=== PATIENT | male | born 1960 | race Caucasian/White ===

== ENCOUNTER 2024-03-27 12:50 | Emergency (ER) | payer OTHER ==
--- OUTSIDE RECORDS SUMMARY | 2024-03-27 12:53 | XMS REPORT | Clinical Summary ---
Author Name Unknown Organization [facility] Address [address] [place] [address] Care Team Providers Care Force Adjustment Supervisor Name Role Phone Josef Rome MD Primary Care Provider [phone] Adriano Ybarra MD Unavailable Chela Torres MD Unavailable [phone] Cl Billings DDS Unavailable [phone] Maida Oliva MD Unavailable [phone] Chris Brantley MD Unavailable [phone] Jeff Mcbride MD Unavailable Jeannine Mackey MD Unavailable [email or web address] [email or web address] No known active allergies Medications Medication Sig Dispensed Refills Start Date End Date Status docusate sodium (COLACE) 250 mg capsule Take 250 mg by mouth daily. Reported on 10/25/2016 Active albuterol (ACCUNEB) 1.25 mg/3 mL nebulizer solution Take 1 ampule by nebulization as needed for wheezing. Active metoclopramide (REGLAN) 10 mg tabletIndications:N eoplasm related pain (acute) (chronic),Other insomnia,Nausea alone Take 1 tablet (10 mg) by mouth every 4 (four) hours as needed for nausea. 120 tablet 12/15/2016 Active Additional Information Patient not taking.Reported on 04/07/2017 traZODone (DESYREL) 50 mg tabletIndications:O ther insomnia Take half of a tablet (25 mg) by mouth at bedtime. 30 tablet 04/07/2017 Active Additional Information Patient not taking.Reported on 04/07/2017 morphine (MSIR) 15 mg IR tabletIndications:N eoplasm related pain (acute) (chronic) Take 1 tablet (15 mg) by mouth every 4 hours as needed for moderate pain (maximum 4 doses per day). 90 tablet 05/04/2017 Active morphine (MS CONTIN) 60 mg 12 hr tabletIndications:N eoplasm related pain (acute) (chronic) Take 1 tablet (60 mg) by mouth every 12 (twelve) hours. 60 tablet 05/04/2017 Active losartan (COZAAR) 50 mg tabletIndications:H ypertension TAKE 2 TABLETS EVERY DAY 60 tablet 09/26/2017 Active losartan (COZAAR) 50 mg tabletIndications:H ypertension TAKE 2 TABLETS EVERY DAY 60 tablet 09/26/2017 Active losartan (COZAAR) 50 mg tabletIndications:B enign hypertension TAKE 2 TABLETS EVERY DAY 60 tablet 3 02/07/2018 Active Active Problems Patient Care Coordination No te Formatting of this note migh t be different from the original. The patient will get colonoscopy on 01/26 and follow up on 02/01. Problem Noted Date Diagnosed Date Sinus tachycardia 03/29/2017 Personal history of colonic polyps 02/02/2017 Overview: Added automatically from request for surgery [id number] Villous adenoma of colon 02/02/2017 Overview: Added automatically from request for surgery [id number] Tubular adenoma of colon 02/02/2017 Overview: Added automatically from request for surgery [id number] Colon cancer 01/02/2017 Overview: Added automatically from request for surgery [id number] Mandatory CMS ICD-10 2020 UPDATE Adenocarcinoma of upper lobe of left lung 2016 Malignant neoplasm related fatigue 08/01/2016 Anorexia 08/01/2016 Neuropathic pain 07/25/2016 Adjustment disorder with anxiety 07/25/2016 Hypertension 07/25/2016 Overview: Hypertension diagnosed in October 2015. Started metoprolol tartrate 25 mg po BID in October 2015. Last Assessment & Plan: Has been out of medications for one week. Change to metoprolol succinate 50 mg po daily. Chronic obstructive pulmonary disease 07/25/2016 Neoplasm related pain (acute) (chronic) 04/22/20 16 Nausea with vomiting 04/22/2016 Ileus 04/22/2016 Fever with chills 04/22/2016 Ileitis 04/22/2016 Primary malignant neoplasm of left lung 04/21/20 16 Last Assessment & Plan: Mr. Tran is a 55-year-old male patient here postoperatively after left upper lobectomy on July 22, 2016 pathological stage [id number] adenocarcinoma stage IIA. He is going to see Dr. Jordan for adjuvant chemotherapy. Follow-up will be in 3 months with imaging. Eye symptom 04/12/2016 Adenocarcinoma of sigmoid colon 04/04/2016 Immunizations Name Administration Dates Next Due Influenza, split virus, trivalent, preservative free 04/28/2016 Pneumococcal Conjugate 13-Valent 04/28/2016 Surgical History Surgery Date Site/Laterality Comments COLOSTOMY [facility] EBUS GUIDED SAMPL 3/> NODE STATION/STRUX 04/29/2016 N/A Procedure: BRONCHOSCOPY WITH EBUS 3 OR MORE NODES; Surgeon: Jenni Michele MD; Location: MAIN PULM PROC; Service: PULMONARY GA THORACOTOMY WITH EXPLORATION 07/22/2016 Chest/Left Procedure: THORACOTOMY WITH EXPLORATION; Surgeon: Maida Oliva MD; Location: MAIN OR; Service: THRCV - THORACIC SURGERY Medical devices from this surgery are in the Medical Devices section. GA THORCOM THRC W/MEDSTNL & REGIONAL LMPHADEC 07/22/2016 Chest/Left Procedure: THORACIC LYMPHADENECTOMY BY THORACOTOMY, MEDIASTINAL AND REGIONAL LYMPHADENECTOMY; Surgeon: Maida Oliva MD; Location: MAIN OR; Service: THRCV - THORACIC SURGERY Medical devices from this surgery are in the Medical Devices section. GA RMVL LUNG OTHER THAN PNEUMONECTOMY 1 LOBE LOBECT 07/22/2016 Chest/Left Procedure: LOBECTOMY OF LEFT UPPER LUNG; Surgeon: Maida Oliva MD; Location: MAIN OR; Service: THRCV - THORACIC SURGERY Medical devices from this surgery are in the Medical Devices section. GA INJECTION AA&/STRD INTERCOSTAL NRV EA ADDL LVL 07/22/2016 Left Procedure: REGIONAL ANESTHETIC BLOCK OF MULTIPLE INTERCOSTAL NERVES, REGIONAL BLOCK; Surgeon: Maida Oliva MD; Location: MAIN OR; Service: THRCV - THORACIC SURGERY Medical devices from this surgery are in the Medical Devices section. GA COLONOSCOPY STOMA DX INCLUDING COLLJ SPEC SPX 01/26/2017 N/A Procedure: DIAGNOSTIC COLONOSCOPY THROUGH STOMA; Surgeon: Rancho Sharma MD; Location: MAIN ENDOSCOPY; Service: GASTROENTEROLOGY; f/up 1 year Medical History Medical History Date Comments Cancer Colon cancer Hypertension Chronic obstructive pulmonary disease Asthma childhood Pneumonia 10/2015 Adenocarcinoma of upper lobe of left lung 10/26/19 17 Tubular adenoma of colon 01/26/2017 s/p susan ypectomy Villous adenoma of colon 01/26/2017 s/p susan ypectomy Family History Medical History Relation Name Comments Colon cancer Maternal Grandfather Colon cancer Maternal Grandmother Cervical cancer Mother Colon cancer Mother Kidney cancer Other niece Liver cancer Paternal Uncle Relation Name Status Comments Maternal Grandfather Maternal Grandmother Mother Other Paternal Uncle Social History Tobacco Use Types Packs/Day Years Used Date Smoking Tobacco: Former Cigarettes 1 45 0 06/13/1971 - 05/24/2016 Smokeless Tobacco: Never Tobacco Cessation:Ready to Q uit: Yes; Counseling Given: Yes Alcohol Use Standard Drinks/Week Comments No 28 (1 standard drink = 0.6 oz pu re alcohol) Quit 2 months ago Sex and Gender Information Value Date Recorded Sex Assigned at Not on file Gender Identity Not on file Sexual Orientation Not on file Obstetrics History Plan of Treatment Health Maintenance Due Date Last Done Comments COVID-19 Vaccine ( - 2023-2 5 season) 2024 Influenza Vaccine (#1) 2024 04/28/2016 Pneumococcal Vaccine: Pediat rics (0 to 5 Years) and At-Risk Patients (6 to 64 Years) Aged Out 04/28/2016 No longer eligi ble based on patient's age to complete this topic Medical Devices Implanted Type Area Synchro Assembler Device Identifier Shelf Expiration Date Model / Serial / Lot Tube Chest Straight 28fr - [id number] Implanted:Qty: 1 on 07/22/2016 by Maida Oliva MD at [facility] Explanted:07/20 (Quantity not on file) Implant [employer] 05/13/2019 [id number] / / [id number] Advance Directives Documents on File Type Date Recorded Patient Drug Safety Assistant Expl anation Advance Directives: Medical Power of Acquisition Professional 04/05/2016 Medical Power of Att orney Advance Directives: Medical Power of Acquisition Professional 04/04/2016 Medical Power of Att orney * Full Code (Latest Code Status on File) Date Activated Date Inactivated Comments 07/22/2016 2:02 PM 08/08/2016 1:25 PM * Full Code Date Activated Date Inactivated Comments 06/24/2016 2:03 AM 06/27/2016 5:02 PM * Full Code Date Activated Date Inactivated Comments 04/20/2016 10:50 PM 04/27/2016 6:04 PM Care Teams Force Adjustment Supervisor Relationship Specialty Start Date End Date Josef Rome MD [address] [place] [address] [email or web address] PCP - General Gastrointestinal Medical Oncology 04/01/16 Adriano Ybarra MD [address] [place] [phone] [place] [address] PCP - External Follow Up A Family Practice 09/23/16 Chela Torres MD [address] [place] [address] [email or web address] PCP - External Follow Up D [facility] 05/19/17 Cl Billings DDS [address] [place] [id number] [email or web address] Consulting Physician Dental Oncology 09/14/16 Maida Oliva MD [address] [place] [email or web address] Consulting Physician Cardiothoracic Surgery 04/28/16 Chris Brantley MD [address] [place] [id number] [email or web address] Consulting Physician Pulmonary Medicine 04/28/16 Jeff Mcbride MD [address] [place] [id number] [email or web address] Consulting Physician Gastroenterology, Hepatology and Nutrition 09/13/16 Jeannine Mackey MD [address] [place] [email or web address] Consulting Physician Supportive Care 04/04/16
--- NOTE | 2024-03-27 13:45 | RAD REPORT ---
EXAM: CT Head Brain Wo Cont HISTORY: Headache;Numbness COMPARISON: None TECHNIQUE: Multiple contiguous axial images were obtained for a CT of the brain without contrast. Sag ittal and coronal reformats were performed. One or more of the following dose reduction techniques were used: Automated exposure control, adjus tment of the mA and kV according to patient size, and iterative reconstruction. Unless otherwise specified, incidental findings do not require dedicated imaging follow-up. FINDINGS: Ovoid large mass centered on the right frontal lobe, with surrounding pronounced vasogenic edema exte nding to the adjacent right parietal lobe. The bulk of the mass measures 5.7 x 4.2 cm in greatest axial dimensions and 4.7 cm in greatest craniocaudal extent. Effacement of the left lateral ventricle especially the frontal horn. Mild asymmetric effacement of the right suprasellar cistern. Other basal cisterns are patent. Leftward midline shift measuring 1.5 cm. No evidence of transtentorial herniation. The calvarium is intact. The visualized paranasal sinuses and mastoid air cells are essentially clear . IMPRESSION: Ovoid large mass measuring up to 5.7 cm centered in the right frontal lobe with adjacent vasogenic ed yony and mass effect, resulting in leftward midline shift measuring 1.5 cm. 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 Additional evaluation by contrast-enhanced MRI is recomm ended. THIS REPORT CONTAINS FINDINGS THAT MAY BE CRITICAL TO PATIENT CARE. The findings were verbally commun icated via telephone to Genny Bolton M.D. on 03/27/2024 1:37 PM.
[2024-03-27] MEDS ORDERED: dexAMETHasone 10 MG/ML VIAL ONE (13:54)
[2024-03-27] MEDS ORDERED: NA CHLORIDE 0.9% 1,000 ML ONE (13:54)
[2024-03-27 14:28] LABS: Absolute Basophils 0.2 K/uL (0-0.5); Absolute Monocytes 1.3 K/uL (0.1-1.3); Absolute Neutrophil 15.2 K/uL (1.8-8.0); Basophils % 0.8 % (0-1.3); Eosinophils % 0.2 % (0-4.4); Hematocrit 45.3 % (39.6-49.0); Hemoglobin 15.1 g/dL (13.6-17.9); Lymphocytes % 10.5 % (15.3-44.8); MCH 30.1 pg (27.0-35.0); MCHC 33.3 g/dL (32.0-36.0); MCV 90.4 fL (80-100); MPV 7.8 fL (7.6-11.3); Monocytes % 7.1 % (3.3-12.3); Neutrophils % 81.4 % (41.7-73.7); Nucleated Red Blood Cells % 0.1 % (0-0); Platelets 419 thou/uL (152-406); RBC Red Blood Cell Count 5.01 M/uL (4.33-5.43); Red Cell Distribution Width 14.7 % (12.1-15.2)
[2024-03-27 14:34] LABS: AST/SGOT 11 U/L (15-37); Albumin 3.8 g/dL (3.4-5.0); Albumin/Globulin Ratio 0.9 (1.1-1.8); Alkaline Phosphatase 127 U/L (45-117); Anion Gap 13.9 mEq/L (5.0-15.0); BUN Blood Urea Nitrogen 18 mg/dL (7-18); Bicarbonate 21 mEq/L (21-32); Bilirubin Direct 0.2 mg/dL (0-0.2); Bilirubin Indirect, Calculated 0.6 mg/dL (0.2-0.8); Bilirubin Total 0.8 mg/dL (0.2-1.0); Globulin 4.4 g/dL (2.3-3.5); Glomerular Filtration Rate 84 ml/min (=/>90); Glucose Level 97 mg/dL (74-106); NT PRO-BNP 242 pg/mL (<125); Potassium 3.9 mEq/L (3.5-5.1); Protein, Total 8.2 g/dL (6.4-8.2); Sodium Level 136 mEq/L (136-145)
[2024-03-27 14:36] LABS: ALT/SGPT < 14 U/L (16-61)
[2024-03-27 14:38] LABS: Troponin High Sensitivity 76.3 pg/mL (<58.9)
[2024-03-27 14:49] LABS: D-Dimer 0.372 FEUug/mL (0-0.500); PT Prothrombin Time 11.7 SECONDS (9.4-12.5); PTT, Activated Partial Thromb 27.3 SECONDS (24.3-36.9); Protime INR 1.05
--- NOTE | 2024-03-27 15:14 | RAD REPORT ---
EXAMINATION: ONE VIEW CHEST XR CLINICAL INDICATION: Male, 63 years old.,DYSPNEA TECHNIQUE: Frontal chest projection is submitted. Examination is limited by patient positioning and t echnique. COMPARISON: No prior exam. FINDINGS: The lungs are well inflated and clear. No pneumothorax. Blunting of the left costophrenic angle sugg esting pleural thickening or small effusion. The heart is normal in size. Mediastinal contours are unremarkable. IMPRESSION: Blunting of the left costophrenic angle suggesting pleural thickening or small effusion. No other acu te intrathoracic abnormalities.
[2024-03-27 15:16] LABS: White Blood Cell Scan OK (OK)
[2024-03-27 15:17] LABS: Blood Morphology Comment NOT SEEN (NOT SEEN); Platelet Estimate INCR; Platelets Clumped FEW
--- NOTE | 2024-03-27 16:16 | RAD REPORT ---
EXAM: CT Chest For Pe Angio TECHNIQUE: CT angiogram of the chest was performed following intravenous contrast administration, inc luding sagittal and coronal as well as maximum intensity projection reformats. One or more of the following dose reduction techniques were used: Automated exposure control, adjustment of the mA and k V according to patient size, and iterative reconstruction. Unless otherwise specified, incidental findings do not require dedicated imaging follow-up. INDICATION: [facility] DYSPNEA Bed Name: 2 Y COMPARISON: None. FINDINGS: LINES/TUBES: None. PULMONARY ARTERIES: Main pulmonary arteries are normal in caliber. No filling defects within the pul monary arteries to suggest pulmonary embolus. LUNGS AND AIRWAYS: Major airways are patent with no suspicious masses. A few scattered nodular mostly groundglass opacities throughout the right upper lung, as well as a right lateral central upper lobe peribronchovascular 11 mm nodular opacity on axial image 115/[id number]. Postsurgical changes of partia l left lung resection. Moderate right apical paraseptal emphysematous changes. PLEURA: No effusion or pneumothorax. HEART AND MEDIASTINUM: The visualized thyroid gland is normal. No mediastinal, hilar, or axillary lym phadenopathy. Heart is unremarkable. No pericardial effusion. SOFT TISSUES AND BONES: No acute osseous abnormality. No significant soft tissue finding. UPPER ABDOMEN: Unremarkable. IMPRESSION: Scattered predominantly groundglass right upper lobe nodular opacities, as well as an 11 mm flattened peribronchovascular right upper lobe nodular opacity. Findings are favored to reflect a mild infectious or inflammatory process such as pneumonitis. No other suspicious masses or adenopathy. Postsurgical changes of left lung partial resection as abov e.
--- NOTE | 2024-03-27 16:18 | RAD REPORT ---
EXAMINATION: CT Abdomen Pelvis W Contrast CLINICAL INDICATION: Male, 63 years old. PAIN TECHNIQUE: CT abdomen and pelvis was performed, after the administration of IV contrast, [facility]. Axial, sagittal and coronal reconstructions were obtained. One or more of the following dose reduction techniques were used: Automated exposure control, adjustment of the mA and k V according to patient size, and iterative reconstruction. Unless otherwise specified, incidental findings do not require dedicated imaging follow-up. COMPARISON: No prior exam. FINDINGS: LOWER CHEST: The visualized lung bases are clear. LIVER: Normal in size and contour. Subcentimeter hepatic dome hypoattenuating well-circumscribed focu s, difficult to characterize given size but may represent a small cyst. No suspicious focal lesion. BILIARY SYSTEM: No suspicious abnormalities. SPLEEN: Normal size. No focal lesion. PANCREAS: No mass, ductal dilation, or ronn-pancreatic fluid. ADRENALS: Normal; no mass. KIDNEYS: Normal size and contour. No hydronephrosis. URINARY BLADDER: Unremarkable. GASTROINTESTINAL TRACT: Sequelae of prior colon and small bowel resection with anastomotic suture pham es. No evidence of free air, significant intra-abdominal free fluid, bowel obstruction or abscess. APPENDIX: Normal appendix. LYMPH NODES: No lymphadenopathy. MUSCULOSKELETAL: No acute or suspicious osseous abnormality. ADDITIONAL FINDINGS: Mild prostatomegaly. Small right inguinal hernia containing fat. IMPRESSION: No acute or concerning abnormalities seen in the abdomen or pelvis. No suspicious masses or adenopath y. Postsurgical changes as above.
--- NOTE | 2024-03-27 16:34 | ER ---
Nurse's Notes [facility] Name: Elvin Tran Age: 63 yrs Sex: Male : 1960 Arrival Date: 03/27/2024 Time: 12:50 Bed 2 Private MD: Diagnosis: 5.7cm mass right frontal lobe;Weakness Presentation: 03/27 13:34 Chief complaint: Patient states: PT STATES, "MY LEGS ARE NOT WORKING. STARTED 3-4 WEEKS cm10 AGO" PT ALSO REPORTS HEADACHE X3 WEEKS/. Coronavirus screen: Client denies travel out of the [place] in the last 14 days. Ebola Screen: Patient denies travel to an Ebola-affected area in the 21 days before illness onset. No symptoms or risks identified at this time. 13:34 Method Of Arrival: Wheelchair cm10 13:36 Initial Sepsis Screen: Does the patient meet any 2 criteria? HR > 90 bpm. Does the cm10 patient have a suspected source of infection? No. Patient's initial sepsis screen is negative. Risk Assessment: Do you want to hurt yourself or someone else? Patient reports no desire to harm self or others. Onset of symptoms was March 27, 2024. 13:36 Acuity: TAMARA 2 cm10 14:03 No acute neurological deficit is noted. Pre-hospital glucose is not applicable to this patient. Stroke Activation: Symptom onset > 6 hours Physician: ED Attending; Name: ; Notified At: ; Arrived At: Physician: Mid-Level Provider; Name: ; Notified At: ; Arrived At: Physician: [not used]; Name: ; Notified At: ; Arrived At: Physician: [not used]; Name: ; Notified At: ; Arrived At: Physician: [not used]; Name: ; Notified At: ; Arrived At: Historical: - Allergies: 13:36 No Known Allergies; cm10 - PMHx: 13:36 COPD; LUNG CANCER; COLON CANCER; cm10 - Immunization history:: Adult Immunizations up to date. - Infectious Disease History:: Denies. - Social history:: Smoking status: Patient reports the use of cigarette tobacco products, denies chronic smoking, but will smoke occasionally. Screenin:03 [facility] ED Fall Risk Assessment (Adult) History of falling in the last 3 months, ph including since admission No falls in past 3 months (0 pts) Confusion or Disorientation No (0 pts) Intoxicated or Sedated No (0 pts) Impaired Gait Yes (1 pt) Mobility Assist Device Used No (0 pt) Altered Elimination No (0 pt) Score/Fall Risk Level 0 - 2 = Low Risk Oriented to surroundings, Maintained a safe environment, Hourly rounding (assess needs \\T\\ fall precautionary measures) done. Abuse screen: Denies threats or abuse. Denies injuries from another. Nutritional screening: No deficits noted. Tuberculosis screening: No symptoms or risk factors identified. Assessment: 13:44 General: Appears in no apparent distress. Behavior is cooperative. Pain: Denies pain. ph Neuro: Level of Consciousness is awake, alert, obeys commands, Oriented to person, place, time, situation, Reports weakness in right leg and left leg since 3-4 weeks, intermittently. Cardiovascular: Reports fatigue. Respiratory: Airway is patent Respiratory effort is even, unlabored, Respiratory pattern is regular, symmetrical. Derm: Skin is pink, warm \\T\\ dry. Musculoskeletal: Circulation, motion, and sensation intact. Range of motion: intact in all extremities. 13:45 VAN Scoring: Arm Drift: Patients demonstrates NO arm weakness. Patient is VAN Negative. ph TNKase (Tenecteplase) Screening: Contraindications: Patient reports onset of signs and symptoms of stroke greater than 6 hours ago: Yes. 14:03 Crawford Swallow Protocol Exclusion Criteria: Exclusion Criteria Result: Proceed Brief Cognitive Screen What is your name? Normal, Where are you right now? Normal, What year is it? Normal. Oral Mechanism Examination Facial Symmetry: Normal, Motion: Normal, Lip Closure: Normal, Oral Mechanism Result: Normal. 3 oz Water Swallow Challenge: Result: ODALYS PATRICK Notified: Genny Bolton MD. 18:20 Reassessment: Patient appears in no apparent distress at this time. Patient and/or ph family updated on plan of care and expected duration. Pain level reassessed. Patient is alert, oriented x 3, equal unlabored respirations, skin warm/dry/pink. Report called to ROXANNE Mckeon at [facility], awaiting EMS for transport. Vital Signs: 13:34 BP 121 / 82; Pulse 132; Resp 18; Temp 98.5(TE); Pulse Ox 95% on R/A; Weight 79.38 kg; cm10 Height 5 ft. 11 in. ; Pain 0/10; 14:25 BP 148 / 87; Pulse 123; Resp 18; Pulse Ox 98% on R/A; ph 15:45 BP 152 / 79; Pulse 114; Resp 20; Pulse Ox 96% on R/A; ph 16:31 BP 153 / 81; Pulse 113; Resp 24; Pulse Ox 98% on R/A; rs6 17:30 BP 159 / 82; Pulse 113; Resp 24; Pulse Ox 95% on R/A; ph 18:30 BP 163 / 84; Pulse 110; Resp 24; Temp 97.9; Pulse Ox 98% on R/A; ph 13:34 Body Mass Index 24.41 (79.38 kg, 180.34 cm) cm10 13:34 Pain Scale: Adult cm10 NIH Stroke Scale Scores: 13:50 NIHSS Score: 0 ph ED Course: 12:52 Patient arrived in ED. mr 12:59 Shanna Irwin, [facility]. kb 12:59 Genny Bolton MD is Attending Physician. kb 13:29 CT Head Brain wo Cont In Process Unspecified. EDMS 13:35 Chest Single View XRAY In Process Unspecified. EDMS 13:36 Triage completed. cm10 13:36 Arm band placed on left wrist. Patient placed in an exam room, on a stretcher. cm10 13:43 Isabella Goode, RN is Primary Nurse. ph 13:46 Patient has correct armband on for positive identification. Bed in low position. Call ph light in reach. Side rails up X 1. Client placed on continuous cardiac and pulse oximetry monitoring. NIBP monitoring applied. monitoring and evaluation advisor on. Door closed. Noise minimized. 14:04 Inserted saline lock: 18 gauge in right forearm, using aseptic technique. Inserted ph saline lock: 20 gauge in left forearm, using aseptic technique. 14:37 Notified Nurse Practitioner and/or Physician Wastewater Superintendent of a critical lab result(s), ll1 troponin 76.3. 15:04 CT Chest For PE Angio In Process Unspecified. EDMS 15:04 CT Abd/Pelvis - IV Contrast Only In Process Unspecified. EDMS 16:19 initiated transfer to [facility]. bd 16:57 pt accepted in transfer to [facility] by Dr Hernandez admin approval given by Andrés Cast.pt going to neuro icu 8 a rm 807. 18:31 No provider procedures requiring assistance completed. Patient transferred, IV remains ph in place. Administered Medications: 14:24 Drug: Decadron - Dexamethasone IVP 10 mg IVP once Route: IVP; Site: right forearm; ph 15:00 Follow up: Response: No adverse reaction ph 14:24 Drug: NS 0.9% IV 1000 ml IV at 1000 ml once; to be given as a bolus over 60 minutes ph Route: IV; Rate: 1000 ml; Site: right forearm; 15:30 Follow up: Response: No adverse reaction; IV Status: Completed infusion; IV Intake: ph 1000ml 17:11 Drug: morphine IVP or IV 4 mg IVP once over 4 mins Route: IVP; Infused Over: 4 mins; ph Site: right forearm; 17:30 Follow up: Response: No adverse reaction; Pain is decreased; RASS: Alert and Calm (0) ph 17:11 Drug: Ondansetron IVP 4 mg IVP once; over 2 minutes Route: IVP; Site: right forearm; ph 18:31 Follow up: Response: No adverse reaction ph 17:15 Drug: Keppra IV 1500 mg IV at calculated rate once Route: IV; Rate: calculated rate; ph Site: right forearm; 18:00 Follow up: Response: No adverse reaction; IV Status: Completed infusion ph 19:13 Drug: morphine IVP or IV 4 mg IVP once over 4 mins Route: IVP; Infused Over: 4 mins; ph Site: left forearm; 19:13 Follow up: Response: No adverse reaction; Medication Administered at Departure ph Medication: 13:46 VIS not applicable for this client. ph Intake: 15:30 IV: 1000ml; Total: 1000ml. ph Outcome: 16:33 ER care complete, transfer ordered by MD. bain 19:19 Transferred by ground EMS [place]. to [facility], Transfer ph form completed. X-rays sent w/ patient. 19:19 Condition: stable 19:19 Instructed on the need for transfer, 19:20 Patient left the ED. ph NIH Stroke Scale - NIH Stroke Score Date: 03/27/2024 Time: 13:50 Total Score = 0 10. Dysarthria (speech clarity - read or repeat words) - 0(Normal) 11. Extinction and Inattention (visual/tactile/auditory/spatial/personal) - 0(No abnormality) 1a. Level of Consciousness (LOC) - 0(Alert) 1b. Level of Consciousness (LOC) (Month \\T\\ Age) - 0(Both) 1c. LOC Commands (Open \\T\\ Closes Eyes/Public Transportation Inspector) - 0(Both) 2. Best Gaze (Lateral Gaze Paresis) - 0(Normal) 3. Visual Field Loss - 0(No visual loss) 4. Facial Palsy - 0(Normal) 5a. Left Arm: Motor (10-second hold) - 0(No drift) 5b. Right Arm: Motor (10-second hold) - 0(No drift) 6a. Left Leg: Motor (5-second hold - always test supine) - 0(No drift) 6b. Right Leg: Motor (5-second hold - always test supine) - 0(No drift) 7. Limb Ataxia (finger/nose \\T\\ heel/goel - test with eyes open) - 0(Absent) 8. Sensory Loss (pinprick arms/legs/face) - 0(Normal) 9. Best Language: Aphasia (description/naming/reading) - 0(No aphasia) Initials: ph Signatures: Dispatcher [employer] EDMS Shanna Irwin, CLINICAL NURSING COORDINATOR-C CLINICAL NURSING COORDINATOR-Ckb Olesya Doss bd Arellano, Ginny, Reg Reg mr Isabella Goode, RN RN ph Thuy Machado RN RN ll1 Jade Ferro RN RN cmWilli Clayton rs6 Corrections: (The following items were deleted from the chart) 14:39 14:37 Notified Nurse Practitioner and/or Physician Wastewater Superintendent of a critical lab ll1 result(s), troponin 63.8 ll1
--- NOTE | 2024-03-27 16:34 | EDPHYS ---
Physician Documentation [facility] Name: Elvin Tran Age: 63 yrs Sex: Male : 1960 Arrival Date: 03/27/2024 Time: 12:50 Bed 2 Private MD: ED Physician Genny Bolton HPI: 03/27 13:15 This 63 yrs old Male presents to ER via Unassigned with complaints of Weakness. kb 13:15 Pt is a 63 year old male who presents for bilateral leg numbness that started 2-3 weeks kb ago. States "my legs feel like they weigh 100 pounds." Pt reports shortness of breath that is worse than normal. Reports history of COPD and lung CA. Denies chest pain. Historical: - Allergies: 13:36 No Known Allergies; cm10 - PMHx: 13:36 COPD; LUNG CANCER; COLON CANCER; cm10 - Immunization history:: Adult Immunizations up to date. - Infectious Disease History:: Denies. - Social history:: Smoking status: Patient reports the use of cigarette tobacco products, denies chronic smoking, but will smoke occasionally. ROS: 13:16 Constitutional: As per HPI kb Exam: 13:16 Constitutional: This is a well developed, well nourished patient who is awake, alert, kb and in no acute distress. Head/Face: Normocephalic, atraumatic. ENT: Moist Mucous membranes Respiratory: Respirations even and unlabored. No increased work of breathing. Talking in full sentences Abdomen/GI: Soft, non-tender. No distention Skin: Warm, dry with normal turgor. Normal color. MS/ Extremity: Pulses equal, no cyanosis. Neurovascular intact. Full, normal range of motion. Neuro: Awake and alert, GCS 15, oriented to person, place, time, and situation. 13:16 Cardiovascular: Rate: tachycardic, 13:52 ECG was reviewed by the Attending Physician. kb 14:01 Neuro: Orientation: to person, place, time \\T\\ situation. Mentation: is normal, able to kb follow commands, Motor: moves all fours, Strength is 3/5 in the right leg and left leg, Vital Signs: 13:34 BP 121 / 82; Pulse 132; Resp 18; Temp 98.5(TE); Pulse Ox 95% on R/A; Weight 79.38 kg; cm10 Height 5 ft. 11 in. ; Pain 0/10; 14:25 BP 148 / 87; Pulse 123; Resp 18; Pulse Ox 98% on R/A; ph 15:45 BP 152 / 79; Pulse 114; Resp 20; Pulse Ox 96% on R/A; ph 16:31 BP 153 / 81; Pulse 113; Resp 24; Pulse Ox 98% on R/A; rs6 17:30 BP 159 / 82; Pulse 113; Resp 24; Pulse Ox 95% on R/A; ph 18:30 BP 163 / 84; Pulse 110; Resp 24; Temp 97.9; Pulse Ox 98% on R/A; ph 13:34 Body Mass Index 24.41 (79.38 kg, 180.34 cm) cm10 13:34 Pain Scale: Adult cm10 NIH Stroke Scale Scores: 13:50 NIHSS Score: 0 ph MDM: 13:00 Medical Screening Exam initiated kb 13:17 Data reviewed: vital signs, nurses notes. kb 13:17 Historians other than the Patient: Daughter/Son: son. kb 14:23 Counseling: I had a detailed discussion with the patient and/or guardian regarding the kb historical points, exam findings, and any diagnostic results supporting the discharge/admit diagnosis, radiology results, the need to transfer to another facility, [facility] does not immediately have the required specialist. ED course: Discussed CT findings with pt and son. Educated on need for transfer. Verbal understanding received. . 16:31 Differential diagnosis: cardiac arrhythmia, CVA, generalized weakness, brain mass. kb Consideration of Admission/Observation Escalation of care including admission/observation considered. pt will be transferred for neurosurgery specialty; pt requests [facility] due to previous care being done there. . Management of patient was discussed with the following: Neurosurgeon at [facility] accepts pt for transfer. Would like pt in the ICU. transfer center to call back with bed. 03/27 13:15 Order name: Basic Metabolic Panel; Complete Time: 14:38 kb 03/27 13:15 Order name: CBC with Diff; Complete Time: 15:17 kb 03/27 13:15 Order name: Hepatic Function; Complete Time: 14:38 kb 03/27 13:15 Order name: Magnesium; Complete Time: 14:38 kb 03/27 13:15 Order name: Protime (+inr); Complete Time: 14:52 kb 03/27 13:15 Order name: Ptt, Activated; Complete Time: 14:52 kb 03/27 13:15 Order name: Troponin High Sensitivity; Complete Time: 14:38 kb 03/27 13:15 Order name: D-Dimer; Complete Time: 14:52 kb 03/27 13:15 Order name: BNP; Complete Time: 14:38 kb 03/27 15:17 Order name: CBC Smear Scan; Complete Time: 15:17 EDMS 03/27 13:15 Order name: CT Head Brain wo Cont; Complete Time: 13:45 kb 03/27 13:15 Order name: Chest Single View XRAY; Complete Time: 15:15 kb 03/27 14:47 Order name: CT Chest For PE Angio; Complete Time: 16:18 kb 03/27 14:47 Order name: CT Abd/Pelvis - IV Contrast Only; Complete Time: 16:20 kb 03/27 13:15 Order name: Cardiac monitoring; Complete Time: 13:47 kb 03/27 13:15 Order name: EKG - Nurse/Tech; Complete Time: 13:47 kb 03/27 13:15 Order name: IV Saline Lock; Complete Time: 14:02 kb 03/27 13:15 Order name: Labs collected and sent; Complete Time: 14:02 kb 03/27 13:15 Order name: NPO; Complete Time: 13:47 kb 03/27 13:15 Order name: O2 Per Protocol; Complete Time: 13:47 kb 03/27 13:15 Order name: O2 Sat Monitoring; Complete Time: 13:47 kb EC:52 Rate is 128 beats/min. Rhythm is regular. QRS [place] is Normal. [place] interval is normal at kb 148 msec. QRS interval is normal at 84 msec. QT interval is normal at 449 msec. Administered Medications: 14:24 Drug: Decadron - Dexamethasone IVP 10 mg IVP once Route: IVP; Site: right forearm; ph 15:00 Follow up: Response: No adverse reaction ph 14:24 Drug: NS 0.9% IV 1000 ml IV at 1000 ml once; to be given as a bolus over 60 minutes ph Route: IV; Rate: 1000 ml; Site: right forearm; 15:30 Follow up: Response: No adverse reaction; IV Status: Completed infusion; IV Intake: ph 1000ml 17:11 Drug: morphine IVP or IV 4 mg IVP once over 4 mins Route: IVP; Infused Over: 4 mins; ph Site: right forearm; 17:30 Follow up: Response: No adverse reaction; Pain is decreased; RASS: Alert and Calm (0) ph 17:11 Drug: Ondansetron IVP 4 mg IVP once; over 2 minutes Route: IVP; Site: right forearm; ph 18:31 Follow up: Response: No adverse reaction ph 17:15 Drug: Keppra IV 1500 mg IV at calculated rate once Route: IV; Rate: calculated rate; ph Site: right forearm; 18:00 Follow up: Response: No adverse reaction; IV Status: Completed infusion ph 19:13 Drug: morphine IVP or IV 4 mg IVP once over 4 mins Route: IVP; Infused Over: 4 mins; ph Site: left forearm; 19:13 Follow up: Response: No adverse reaction; Medication Administered at Departure ph Disposition Summary: 03/27/24 16:33 Transfer Ordered Notes: Transfer Location: [facility] kb Reason: Higher level of care kb Condition: Stable kb Problem: new kb Symptoms: are unchanged kb Accepting Physician: Dr Hernandez(03/27/24 19:20) ph Diagnosis - 5.7cm mass right frontal lobe kb - Weakness kb Forms: - Medication Reconciliation Form kb - SBAR form kb NIH Stroke Scale - NIH Stroke Score Date: 03/27/2024 Time: 13:50 Total Score = 0 10. Dysarthria (speech clarity - read or repeat words) - 0(Normal) 11. Extinction and Inattention (visual/tactile/auditory/spatial/personal) - 0(No abnormality) 1a. Level of Consciousness (LOC) - 0(Alert) 1b. Level of Consciousness (LOC) (Month \\T\\ Age) - 0(Both) 1c. LOC Commands (Open \\T\\ Closes Eyes/Recycling Manager) - 0(Both) 2. Best Gaze (Lateral Gaze Paresis) - 0(Normal) 3. Visual Field Loss - 0(No visual loss) 4. Facial Palsy - 0(Normal) 5a. Left Arm: Motor (10-second hold) - 0(No drift) 5b. Right Arm: Motor (10-second hold) - 0(No drift) 6a. Left Leg: Motor (5-second hold - always test supine) - 0(No drift) 6b. Right Leg: Motor (5-second hold - always test supine) - 0(No drift) 7. Limb Ataxia (finger/nose \\T\\ heel/goel - test with eyes open) - 0(Absent) 8. Sensory Loss (pinprick arms/legs/face) - 0(Normal) 9. Best Language: Aphasia (description/naming/reading) - 0(No aphasia) Initials: ph Signatures: Dispatcher [employer] EDMS Shanna Irwin, SANFORIZER-C SANFORIZER-Isabella Lindsey, RN RN ph Jade Ferro RN RN cm10 Corrections: (The following items were deleted from the chart) 13:15 13:15 Chest Single View+RAD.RAD.BRZ ordered. EDMS EDMS 15:35 13:15 Urinalysis+U.LAB.BRZ ordered. EDMS EDMS 16:53 16:33 Dr bain kb 19:20 16:53 Dr Hernandez kb ph
[2024-03-27] MEDS ORDERED: MORPHINE 4 MG/ML SYR ONE ×2 (16:40→19:11)
[2024-03-27] MEDS ORDERED: ONDANSETRON 4 MG/2 ML VIAL ONE (16:40)
[2024-03-27] MEDS ORDERED: levETIRAcetam 1,500 MG in NA CHLORIDE 0.9% 100 ML IV SCH (17:15)
[2024-03-27 20:12] VITALS: BP 163/84; TEMP 97.9; O2SAT 98
== END 2024-03-27 19:20 | disposition short-term general hospital (02) ==
LOC: ER 12:50
DX: G93.89 Other specified disorders of brain (principal); J44.9 Chronic obstructive pulmonary disease, unspecified; Z85.118 Personal history of other malignant neoplasm of bronchus and lung; Z85.038 Personal history of other malignant neoplasm of large intestine; F17.210 Nicotine dependence, cigarettes, uncomplicated
CPT/HCPCS: 85025; 80048; 36415; 83735; 85610; 85379; 80076; 85730; 84484; 83880; 70450; 71275; 74177; 71045; Q9967; J1953; J1100; J2405; J7030